=== PATIENT | female | born 1965 | race Caucasian/White ===

== ENCOUNTER → 2019-07-26 13:04 | Outpatient (CLI) | payer BC, SELFPAY ==
--- NOTE | ~2019-07-26 | CT_ITS ---
EXAMINATION: CT abdomen pelvis w con DATE: 07/26/2019 13:46 INDICATION: Left lower quadrant pain. Abdominal bruit. TECHNIQUE: Computed tomography (CT) of the abdomen and pelvis was performed with 100 cc Omnipaque 350 intravenous contrast. The dose-length product was 738.80 mGy-cm. Automated exposure control and iter ative reconstruction technique were employed. COMPARISON: None. FINDINGS: There is right lower lobe airspace consolidation which may represent atelectasis or develop ing pneumonia. Heart size normal. No significant pleural or pericardial effusion. There are subcentim eter hypodensities of the kidneys, most likely benign cysts. The liver, spleen, adrenal glands are un remarkable. Small 5 millimeter fat-containing mass of the pancreatic body, most likely a benign lipom a. There is atherosclerosis of the aorta without aneurysm. No lymphadenopathy. Gallbladder is present . No bowel obstruction. No evidence for diverticulitis. No free air or free fluid. There is lumbar sp ondylosis with grade 1 spondylolisthesis at L5-S1 secondary to spondylolysis. IMPRESSION: 1. No findings to account for patient's symptoms. No acute abnormality. Reviewed, dictated and finalized at location A. [employer]
== END ==
PROVIDERS: Visit Provider Nurse Practitioner Family
DX: R10.84 Generalized abdominal pain (principal)
CPT/HCPCS: 74177; Q9967

== ENCOUNTER → 2019-08-07 08:20 | Outpatient (CLI) | payer BC, SELFPAY ==
--- NOTE | ~2019-08-07 | MR_ITS ---
EXAMINATION: MR lumbar spine wo con EXAM DATE: 08/07/2019 08:57 INDICATION: Lumbar region, radiculopathy. Low back pain. TECHNIQUE: Multi-sequential, multiplanar MR images of the lumbar spine were obtained without contrast . Sagittal T1, T2, T2 fat saturation images. Axial T2 weighted images. There is no prior study for comparison. FINDINGS: There is moderate disc disease L5-S1, mild to moderate disc disease at the other lumbar lev els. There is chronic bilateral L5 spondylolysis with 5 mm anterolisthesis L5 on S1 and vacuum disc p henomenon at this level. The conus medullaris terminates at the T12-L1 level and has normal signal in tensity and morphology. Endplate degenerative signal change mostly L2-3. Paraspinal soft tissue is u nremarkable. Level by level evaluation: T12-L1: Disc does not extend beyond the endplate margin. Facet arthropathy: None. Neural foraminal stenosis: No stenosis. Central canal stenosis: No stenosis. L1-L2: Mild to moderate Facet arthropathy: Mild. Neural foraminal stenosis: Mild to moderate left, mild right. Central canal stenosis: No stenosis. L2-L3: There is a mild diffuse disc bulge. Facet arthropathy: Mild to moderate. Neural foraminal stenosis: Mild to moderate left, mild right. Central canal stenosis: No stenosis. L3-L4: There is a mild diffuse disc bulge. Facet arthropathy: Mild. Neural foraminal stenosis: Mild to moderate left, mild right. Central canal stenosis: No stenosis. L4-L5: There is a mild to moderate diffuse disc bulge. Facet arthropathy: Mild to moderate. Neural foraminal stenosis: Mild to moderate right, mild left. Central canal stenosis: Mild. L5-S1: There is a moderate diffuse disc bulge. Facet arthropathy: Mild. Neural foraminal stenosis: Moderate bilateral. Central canal stenosis: No stenosis. IMPRESSION: 1. Chronic L5 spondylolysis, grade 1 anterolisthesis and moderate bilateral neural foraminal stenosi s. 2. Lesser spondylosis at other levels. Reviewed, dictated and finalized at location B. [employer] IMPRESSION: 1. Chronic L5 spondylolysis, grade 1 anterolisthesis and moderate bilateral ne ural foraminal stenosis. 2. Lesser spondylosis at other levels.
== END ==
PROVIDERS: Visit Provider Nurse Practitioner Family
DX: M47.26 Other spondylosis with radiculopathy, lumbar region (principal)
CPT/HCPCS: 72148

== ENCOUNTER 2023-12-20 10:49 | Outpatient (CLI) | payer BC, SELFPAY ==
--- NOTE | ~2023-12-20 | US_ITS ---
EXAMINATION: US carotid duplex BI DATE: 12/20/2023 12:02 INDICATION: Left carotid bruit. TECHNIQUE: Grayscale, color Doppler, and pulsed Doppler images of the cervical carotid arteries were obtained. The degree of vessel stenosis is placed in one of the following categories: normal, <50%, 5 0-69%, >=70% but less than near-occlusion, near-occlusion, or total occlusion. Note that percent sten osis relative to normal distal artery lumen diameter is indirectly measured from velocity measurement s as described by Luis, et al. Radiology 2003; [id number]:[id number]. COMPARISON: None. FINDINGS: RIGHT: The right common carotid artery (CCA) peak systolic velocity (PSV) is 61 cm/s. The right internal car otid artery (ICA) PSV is 47 cm/s. The right ICA end-diastolic velocity (EDV) is 19 cm/s. The right IC A/CCA PSV ratio is 0.8. Grayscale and color Doppler images yield an estimate of <50% diameter reducti on from plaque in the ICA. There is antegrade flow in the right vertebral artery. LEFT: The left CCA PSV is 47 cm/s. The left ICA PSV is 61 cm/s. The left ICA EDV is 20 cm/s. The left ICA/C CA PSV ratio is 1.3. Grayscale and color Doppler images yield an estimate of <50% diameter reduction from plaque in the ICA. There is antegrade flow in the left vertebral artery. IMPRESSION: 1. <50% stenosis in the right internal carotid artery. 2. <50% stenosis in the left internal carotid artery. Reviewed, dictated and finalized at location A.
== END 2023-12-20 10:50 ==
PROVIDERS: PCP Nurse Practitioner Family; Visit Provider Nurse Practitioner Family
DX: I65.23 Occlusion and stenosis of bilateral carotid arteries (principal); I10 Essential (primary) hypertension; E78.5 Hyperlipidemia, unspecified; R09.89 Other specified symptoms and signs involving the circulatory and respiratory systems; H01.003 Unspecified blepharitis right eye, unspecified eyelid; Z72.0 Tobacco use; Z12.11 Encounter for screening for malignant neoplasm of colon; Z11.51 Encounter for screening for human papillomavirus (HPV); Z12.31 Encounter for screening mammogram for malignant neoplasm of breast; Z71.85 Encounter for immunization safety counseling
CPT/HCPCS: 93880